=== PATIENT | female | born 2000 | race Caucasian/White ===

== ENCOUNTER 2020-12-29 07:19 | Inpatient (IN) | payer OTHER ==
[2020-12-29] MEDS ORDERED: XYLOCAINE 1% HCL 20 ML MDV IJ PRN (08:00)
[2020-12-29] MEDS ORDERED: PITOCIN 30 UNITS/ LR 500 ML 30 UNITS/500 ML IV.SOLN. IV SCH (08:00)
[2020-12-29] MEDS ORDERED: BRETHINE 1 MG/ML SQ PRN (15:14)
[2020-12-29] MEDS ORDERED: Cervidil 10 MG VAG SCH (18:00)
[2020-12-29 19:06] LABS: Absolute Neutrophil Ct (ANC) 5.58 (1.4-6.9); BASOPHIL % 0.2 % (0.0-0.4); Basophil (Absolute #) 0.02 (0-0.4); Eosinophil % 0.5 % (0.00-5.0); Eosinophil (Absolute #) 0.04 (0-0.5); Hematocrit 34.1 % (35-47); Hemoglobin 11.4 gm/dl (12.0-16.0); Lymphocytes % 24.4 % (24.0-44.0); Mean Cell Volume 85.7 fl (78-100); Mean Corpuscular Hemoglobin 28.6 pg (26-32); Mean Corpuscular Hgb Concent. 33.4 g/dl (32-36); Mean Platelet Volume 11.6 fl (7.5-11.0); Monocyte (Absolute #) 0.56 (0.0-1.3); Monocytes % 6.8 % (0.0-12.0); Neutrophil % 68.1 % (36.0-66.0); Platelet Count 250 K/mm3 (150-450); Red Blood Count 3.98 M/mm3 (4.1-5.4); Red Cell Distribution Width 14.7 % (11.5-14.0); White Blood Count 8.2 K/mm3 (4.0-10.5)
[2020-12-29 19:22] LABS: Amphetamine,Urine NEGATIVE (NEGATIVE); Barbiturate,Urine NEGATIVE (NEGATIVE); Benzodiazepine,Urine NEGATIVE (NEGATIVE); Cocaine,Urine NEGATIVE (NEGATIVE); Methadone,Urine NEGATIVE (NEGATIVE); Opiate,Urine NEGATIVE (NEGATIVE); PCP,Urine NEGATIVE (NEGATIVE); THC,Urine NEGATIVE (NEGATIVE)
[2020-12-29] MEDS ORDERED: Lactated Ringers 1,000 ML IV ONE (20:54)
[2020-12-29] MEDS ORDERED: TYLENOL EXTRA STRENGTH 500 MG PO PRN (20:55)
[2020-12-29] MEDS ORDERED: Zofran 4 MG/2 ML VIAL IV PRN (20:55)
[2020-12-29] MEDS: Lactated Ringers 1,000 ML IV SCH (21:07)
[2020-12-30] MEDS: Lactated Ringers 1,000 ML IV SCH ×2 (05:00→17:17)
[2020-12-30] MEDS ORDERED: PITOCIN 30 UNITS/ LR 500 ML 30 UNITS/500 ML IV.SOLN. IV SCH (08:00)
[2020-12-30] MEDS ORDERED: OMNIPEN 2 GM*** 2 G in Sodium Chloride 100ML MINI-BAG PLUS 100 ML IV ONE (08:00)
[2020-12-30] MEDS ORDERED: Ephedrine Sulfate 50 MG/ML IV PRN (09:52)
[2020-12-30] MEDS ORDERED: Lactated Ringers 1,000 ML IV ONE (09:52)
[2020-12-30] MEDS ORDERED: OB EPIDURAL NAROPIN/SUFENTANIL IN NACL EPIDURAL PRN (09:52)
[2020-12-30] MEDS: OMNIPEN 1 GM*** 1 GM in Sodium Chloride 100ML MINI-BAG PLUS 100 ML IV SCH ×2 (11:51→15:54)
[2020-12-30] MEDS ORDERED: Anucort-HC SUPPOSITORY PR PRN (19:30)
[2020-12-30] MEDS ORDERED: Rhogam Plus 300 MCG IM ONE (19:30)
[2020-12-30] MEDS ORDERED: TUCKS TP PRN (19:30)
[2020-12-30] MEDS ORDERED: Adacel Vial IM ONE (19:30)
[2020-12-30] MEDS ORDERED: Dulcolax 10 MG SUPP PR PRN (19:30)
[2020-12-30] MEDS ORDERED: Ambien 10 MG PO PRN (19:30)
[2020-12-30] MEDS ORDERED: Mylicon 80MG PO PRN (19:30)
[2020-12-30] MEDS ORDERED: TYLENOL EXTRA STRENGTH 500 MG PO PRN (19:30)
[2020-12-30] MEDS ORDERED: CORTISONE 1% CREAM TP PRN (19:30)
[2020-12-30] MEDS ORDERED: NORCO 5/325 MG PO PRN (19:30)
[2020-12-30] MEDS: Colace 100 MG PO SCH ×2 (20:42→22:02)
[2020-12-30] MEDS ORDERED: Dermoplast Spray ONE (21:05)
[2020-12-30] MEDS: LANSINOH 40 GM TOP PRN (21:09)
[2020-12-30] MEDS: MOTRIN 400 MG PO PRN (21:11)
[2020-12-30] MEDS ORDERED: Dermoplast Spray TP PRN (21:17)
[2020-12-30 22:06] LABS: ABO TYPING O; ANTIBODY SCREEN NEGATIVE (NEGATIVE); RH TYPING NEGATIVE
[2020-12-31] MEDS: Lactated Ringers 1,000 ML IV SCH (01:03)
[2020-12-31] MEDS: MOTRIN 400 MG PO PRN ×3 (04:39→21:52)
[2020-12-31 05:16] LABS: Absolute Neutrophil Ct (ANC) 8.25 (1.4-6.9); BASOPHIL % 0.3 % (0.0-0.4); Basophil (Absolute #) 0.03 (0-0.4); Eosinophil % 0.4 % (0.00-5.0); Eosinophil (Absolute #) 0.04 (0-0.5); Hematocrit 32.7 % (35-47); Hemoglobin 10.5 gm/dl (12.0-16.0); Lymphocytes % 18.6 % (24.0-44.0); Mean Cell Volume 86.5 fl (78-100); Mean Corpuscular Hemoglobin 27.8 pg (26-32); Mean Corpuscular Hgb Concent. 32.1 g/dl (32-36); Mean Platelet Volume 11.4 fl (7.5-11.0); Monocyte (Absolute #) 0.85 (0.0-1.3); Monocytes % 7.5 % (0.0-12.0); Neutrophil % 73.2 % (36.0-66.0); Platelet Count 188 K/mm3 (150-450); Red Blood Count 3.78 M/mm3 (4.1-5.4); Red Cell Distribution Width 14.6 % (11.5-14.0); White Blood Count 11.3 K/mm3 (4.0-10.5)
[2020-12-31] MEDS ORDERED: Adacel Vial IM ONE (10:00)
[2020-12-31] MEDS ORDERED: Rhogam Plus 300 MCG IM ONE (10:00)
[2020-12-31] MEDS: Colace 100 MG PO SCH ×2 (10:15→21:52)
[2020-12-31] MEDS: FERREX 150 PO SCH (10:16)
[2021-01-01 02:35] VITALS: O2SAT 96
--- NOTE | 2021-01-01 08:29 | PCM.DS ---
Discharge Summary Date of Admission: 12/30/20 09:20 Admitting Physician: ANKITA CROW Consults: Consults on Case 12/30/20 19:30 Notify Physician ROUTINE Primary Care Provider: ANKITA CROW Allergies Allergies No Known Drug Allergies Allergy (Unverified 12/29/20 19:36) Hospital Summary - Hospital Course Hospital Course: Pt admitted as 20 yo at 39 wks for IOL, term . After cervadil induction and AROM (with clear fluid) she did not require pitocin. Progressed to complete and delivered after 1.5 hour second stage. Intact perineum. GBS was unknown, so she was given 3 doses of IV antibiotics during labor (first dose complete prior to AROM). . Bleeding is light to moderate. No dizziness. Marisabel po. Will be discharged to home at 48 hours post . - Vitals & Intake/Output Vital Signs: Vital Signs Temperature 97.9 F 01/01/21 02:00 Pulse Rate 77 01/01/21 02:00 Respiratory Rate 18 01/01/21 02:00 Blood Pressure 119/68 01/01/21 02:00 O2 Sat by Pulse Oximetry 96 01/01/21 02:00 Intake & Output: Intake & Output 12/29/20 12/30/20 12/31/20 01/01/21 11:59 11:59 11:59 11:59 Intake Total 730 3953 1500 Output Total 500 Balance 730 3453 1500 Weight 90.718 kg - Lab Result Diagrams: 12/31/20 04:20 Lab Results-Last 24 Hrs: Lab Results-Last 24 Hours 12/30/20 Range/Units 21:10 Screen SEE SEPARATE REPORT Micro Results-Entire Visit: Microbiology 12/30/20 10:00 Urine Culture - Preliminary Catherized NO GROWTH TO DATE - Procedures and Test Procedures and Tests throughout Hospitalization: Therapy Orders & Screens 12/30/20 19:32 Standby ROUTINE Comment: Diagnosis: IUP Discharge Exam General Appearance: no apparent distress, alert Neurologic Exam: oriented x 3, cooperative Eye Exam: eyes nml inspection Ears, Nose, Throat Exam: moist mucous membranes Neck Exam: normal inspection Respiratory Exam: normal breath sounds, lungs clear, No crackles/rales, No rhonchi, No wheezing Cardiovascular Exam: regular rate/rhythm, normal heart sounds, No murmur Gastrointestinal/Abdomen Exam: soft, other (fundus firm inferior to umbilicus), No tenderness, No distention, No guarding, No rebound Final Diagnosis/Problem List - Final Discharge Diagnosis/Problem (1) Status post vaginal delivery Current Visit: Yes Status: Acute Assessment & Plan: Doing great. home today with baby. (2) Anemia Current Visit: Yes Status: Acute Assessment & Plan: Mild; Fe for 1 mo. Code(s): D64.9 - ANEMIA, UNSPECIFIED - Discharge Disposition: Home, Self-Care Condition: Good Prescriptions: New Ibuprofen 600 mg PO TID PRN #35 tablet PRN Reason: Pain Continue Vits W-Ca,Fe,FA(<1Mg) [] 1 each PO DAILY Ferrous Sulfate 325 mg PO DAILY Instructions: Diet, Breast Care for the Woman, Pumping Breast Milk, , Common Problems, Health and Nutrition for Women Who Breastfeed, Labor Induction, Dinoprostone, What to Watch for After You Have a Baby Follow up with: ANKITA CROW [Primary Care Provider] -
[2021-01-01] MEDS: FERREX 150 PO SCH (10:14)
[2021-01-01] MEDS: MOTRIN 400 MG PO PRN (10:14)
[2021-01-01] MEDS: Colace 100 MG PO SCH (10:14)
[2021-01-01] MEDS: LANSINOH 40 GM TOP PRN (12:14)
[2021-01-01 15:58] VITALS: BP 128/78; PULSE 82
== END 2021-01-01 15:00 | disposition home or self-care (01) | DRG 807 ==
LOC: OB 09:20 → OBSVTOIN 12-30 09:20
PROVIDERS: ADMIT Family Medicine; ATTEND Family Medicine
PROC: 10E0XZZ Delivery of Products of Conception, External Approach (ICD-10-PCS; principal; 2020-12-30)
DX: O80 Encounter for full-term uncomplicated delivery (principal); Z37.0 Single live birth; Z3A.39 39 weeks gestation of pregnancy; D64.9 Anemia, unspecified
CPT/HCPCS: 36415; 80307; 85025; 85461; 86850; 86900; 86901; 87086; 90471; 90715; 94799; G0378; J0290; J2590; J2790; J2795; A9270-GY

== ENCOUNTER 2022-04-08 18:13 | Emergency (ER) | payer OTHER ==
--- NOTE | 2022-04-08 18:18 | ERPHSYRPT ---
- History of Present Illness Time Seen by Provider: 04/08/22 18:18 Source: patient Exam Limitations: no limitations Physician History: This is a 22-year-old white female who began having right lower back pain that radiated to the left side on 04/06/2022. Approxi-1 week ago she did move some heavy furniture but nothing since that time. She has not had any urinary symptoms. She has had no vomiting but she has had some mild nausea because of the level of pain. She did not suffer any acute trauma or any falls where she would have injured her back. Patient's primary care physician is Dr. Josh Welch. On 04/07/2022 late in the evening (less than 24 hours ago) patient was seen at [facility] emergency department where she underwent a urinalysis, CAT scan of the abdomen and pelvis, IV hydration, and blood laboratory evaluation. Her work-up was negative for any acute emergency issue. At the time of the evaluation she received some fentanyl intravenously. However she was discharged to home with no pain medication. However, she did undergo an ultrasound of the kidneys and gallbladder today. We contacted [facility] emergency department to obtain the work-up that was completed less than 24 hours ago. They could not find the ultrasound of the kidney or gallbladder but did fax over the emergency room records from last night. These were reviewed prior to me evaluating her and performing a physical exam. Timing/Duration: day(s) (2), intermittent, worse Method of Injury: other (No injury) Quality: dull, aching Back Pain Location: lumbar spine, paraspinous muscles Severity of Pain-Max: moderate Severity of Pain-Current: moderate Modifying Factors: Improves With: movement Associated Symptoms: lower back pain, No urinary incontinence, No loss of bowel control, No problems urinating, No numbness in legs/feet, No sensory/motor loss, No tingling in legs/feet Previous symptoms: no prior history Allergies/Adverse Reactions: No Known Drug Allergies Allergy (Unverified 12/29/20 19:36) Home Medications: Ferrous Sulfate 325 mg PO DAILY 12/29/20 [History] Vits W-Ca,Fe,FA(<1Mg) [] 1 each PO DAILY 12/29/20 [History] Travel Risk - International Travel Have you traveled outside of the country in past 3 weeks: No - Coronavirus Screening Are you exhibiting any of the following symptoms?: No Close contact with a COVID-19 positive Pt in past 14-21 Days: No - Review of Systems Constitutional: No Symptoms Eyes: No Symptoms Ears, Nose, & Throat: No Symptoms Respiratory: No Symptoms Cardiac: No Symptoms Abdominal/Gastrointestinal: No Symptoms Genitourinary Symptoms: No Symptoms Musculoskeletal: Back Pain Skin: No Symptoms Neurological: No Symptoms Psychological: No Symptoms Endocrine: No Symptoms Hematologic/Lymphatic: No Symptoms Immunological/Allergic: No Symptoms All Other Systems: Reviewed and Negative - Past Medical History Pertinent Past Medical History: Yes Neurological History: No Pertinent History ENT History: No Pertinent History Cardiac History: No Pertinent History Respiratory History: Asthma Endocrine Medical History: No Pertinent History Musculoskeletal History: No Pertinent History GI Medical History: No Pertinent History History: No Pertinent History Psycho-Social History: No Pertinent History Female Reproductive Disorders: No Pertinent History Other Medical History: PT STATES THAT SHE HAS ASTHMA, BUT HASN'T HAD IT TREATED FOR "OVER A YEAR" - Past Surgical History Past Surgical History: No Neuro Surgical History: No Pertinent History Cardiac: No Pertinent History Respiratory: No Pertinent History Gastrointestinal: No Pertinent History Genitourinary: No Pertinent History Musculoskeletal: No Pertinent History Female Surgical History: No Pertinent History Other Surgical History: PT DENIES SX HX - Social History Smoking Status: Never smoker Exposure to second hand smoke: No Drug Use: none - Nursing Vital Signs Nursing Vital Signs: Initial Vital Signs Temperature 98.2 F 04/08/22 18:17 Pulse Rate 105 H 04/08/22 18:17 Respiratory Rate 18 04/08/22 18:17 Blood Pressure 131/94 04/08/22 18:17 O2 Sat by Pulse Oximetry 99 04/08/22 18:17 Pain Scale Pain Intensity 8 - Physical Exam General Appearance: no apparent distress, alert, anxiety Eye Exam: PERRL/EOMI, eyes nml inspection Ears, Nose, Throat Exam: normal ENT inspection, moist mucous membranes Neck Exam: normal inspection, non-tender, supple, full range of motion Respiratory Exam: normal breath sounds, lungs clear, airway intact, No chest tenderness, No respiratory distress Cardiovascular Exam: tachycardia Gastrointestinal Exam: soft, normal bowel sounds, No tenderness Pelvic Exam: not done Rectal Exam: not done Back Exam: normal inspection, normal range of motion, muscle spasm (Lumbar spine level), No CVA tenderness, No vertebral tenderness Extremity Exam: normal inspection, normal range of motion, pelvis stable Neurologic Exam: alert, oriented x 3, cooperative, hand launderer II-XII nml as tested, normal mood/affect, nml cerebellar function, nml station & gait, sensation nml Skin Exam: normal color, warm, dry Lymphatic Exam: No adenopathy SpO2 Interpretation: normal O2 Delivery: Room Air - Course Nursing assessment & vital signs reviewed: Yes Ordered Tests: Medication Summary Discontinued Medications Generic Name Dose Route Start Last Admin Trade Name Flower PRN Reason Stop Dose Admin Methylprednisolone Sodium 0 mg 04/08/22 20:07 Succinate 125 mg/ Sterile IM 04/08/22 20:08 Water 2 ml STAT ONE Morphine Sulfate 4 mg 04/08/22 20:07 Morphine Sulfate 4 Mg/Ml Injection IV 04/08/22 20:08 STAT ONE Ondansetron HCl 4 mg 04/08/22 20:08 Zofran 4 Mg/Udtablet Orally Disintegrating PO 04/08/22 20:09 STAT ONE Orphenadrine Citrate 60 mg 04/08/22 20:08 Orphenadrine Citrate 60 Mg/2 Ml Vial IM 04/08/22 20:09 STAT ONE - Progress Progress: improved, pain not gone completely, re-examined Progress Note: 04/08/22 20:15 Medical decision making: This patient had a significant, complete work-up performed less than 24 hours ago. She also had an outpatient kidney ultrasound and gallbladder ultrasound that was performed another facility. We do not have access to that report. Patient has not had any falls or traumatic injury before or since her visit in the emergency department. She has back pain. She has no urinary symptoms. She is not . I do not think it is necessary to repeat the work-up that was completed less than 24 hours ago. I discussed this with the patient and she agrees. She just wants some relief of her pain. Counseled pt/family regarding: diagnosis, need for follow-up - Departure Departure Disposition: Home Clinical Impression: Back pain Condition: Stable Critical Care Time: No Referrals: ANKITA POSEY [Primary Care Provider] - Follow up/PCP as directed Additional Instructions: Take medication as prescribed. Follow-up with Dr. Josh Welch's office on 04/11/2022 for further evaluation and management. Return to emergency department symptoms worsen. Prescriptions: Prednisone 10 mg [Deltasone 10 mg] 10 mg PO TID #12 tablet Orphenadrine Citrate 100 mg [Norflex 100 MG Tablet] 100 mg PO BID #10 tab
[2022-04-08] MEDS ORDERED: MORPHINE SULFATE 4 MG INJ IV ONE (20:07)
[2022-04-08] MEDS ORDERED: solu-MEDROL 125 MG, Sterile H2O 10 ml 2 ML IM ONE ×2 (20:07)
[2022-04-08] MEDS ORDERED: Norflex 60 MG/2 ML IM ONE (20:08)
[2022-04-08] MEDS ORDERED: ZOFRAN ODT 4 MG PO ONE (20:08)
[2022-04-08 20:10] VITALS: BP 130/102; PULSE 80; O2SAT 100
[2022-04-08] MEDS ORDERED: solu-MEDROL ONE (20:16)
[2022-04-08] MEDS ORDERED: ZOFRAN ODT 4 MG ONE (20:16)
[2022-04-08] MEDS ORDERED: Norflex 60 MG/2 ML ONE (20:16)
[2022-04-08] MEDS ORDERED: MORPHINE SULFATE 4 MG INJ ONE (20:16)
[2022-04-08] MEDS ORDERED: Sterile H2O 10 ml IJ ONE (20:16)
[2022-04-08] MEDS ORDERED: MORPHINE SULFATE 4 MG INJ IM ONE (20:19)
== END 2022-04-08 20:39 | disposition home or self-care (01) ==
LOC: ED 18:13
DX: M54.50 Low back pain, unspecified (principal); Z79.52 Long term (current) use of systemic steroids
CPT/HCPCS: 96372; 99284; J2270; J2360; J2930; Q0162